=== PATIENT | female | born 1960 | race Caucasian/White ===

== ENCOUNTER → 2016-07-11 | Outpatient (CLI) | payer OTHER ==
--- NOTE | 2016-07-11 09:18 | DX ---
[facility], Right Knee Indication: Right medial knee pain. Fall on June 30, 2016. Comparison: July 08, 2013. Findings: There has been interval placement of a total knee arthroplasty. It is in good anatomic posi tioning without evidence of loosening. No significant joint effusion. Alignment of the knee is anatom ic. A fabella is noted in the posterior knee. Impressions 1. No evidence of fracture. 2. Right total knee arthroplasty in good anatomic positioning.
== END ==
LOC: BMCIMAGING 08:31
PROVIDERS: ATTEND Internal Medicine
DX: S89.91XA Unspecified injury of right lower leg, initial encounter (principal); W19.XXXA Unspecified fall, initial encounter

== ENCOUNTER → 2017-08-19 | Outpatient (CLI) | payer OTHER | LOC: BMCIMAGING 12:32 | PROVIDERS: ATTEND Internal Medicine | DX: Z12.31 Encounter for screening mammogram for malignant neoplasm of breast (principal); Z80.3 Family history of malignant neoplasm of breast ==

== ENCOUNTER → 2017-08-27 | Outpatient (CLI) | payer OTHER | LOC: BMCIMAGING 10:46 | PROVIDERS: ATTEND Internal Medicine | DX: R92.0 Mammographic microcalcification found on diagnostic imaging of breast (principal) ==

== ENCOUNTER → 2017-09-02 | Day surgery (SDC) | payer OTHER ==
[~2017-09-02] MED LIST: BUPIVACAINE 0.5% 10 ML SDV ONE; LIDOCAINE 1% 300 MG/30 ML SDV ONE
== END | disposition home or self-care (01) ==
LOC: FIMAGING 07:21
PROVIDERS: ATTEND Internal Medicine
PROC: BH00ZZZ Plain Radiography of Right Breast (ICD-10-PCS; principal; 2017-09-02)
PROC: 0HBU3ZX Excision of Left Breast, Percutaneous Approach, Diagnostic (ICD-10-PCS; principal; 2017-09-02)
DX: C50.912 Malignant neoplasm of unspecified site of left female breast (principal); R92.0 Mammographic microcalcification found on diagnostic imaging of breast; Z17.0 Estrogen receptor positive status [ER+]

== ENCOUNTER → 2017-09-22 | Outpatient (CLI) | payer OTHER ==
[~2017-09-22] MED LIST changes: -BUPIVACAINE 0.5% 10 ML SDV ONE; +GADOBUTROL 10 ML VIAL IVP ONE; -LIDOCAINE 1% 300 MG/30 ML SDV ONE
== END ==
LOC: FIMAGING 08:22
PROVIDERS: ATTEND Surgery
DX: C50.912 Malignant neoplasm of unspecified site of left female breast (principal)
CPT/HCPCS: 0159T; A9585; C8908

== ENCOUNTER 2017-12-17 20:48 | Emergency (ER) | payer OTHER ==
[2017-12-17] MEDS ORDERED: DIAZEPAM 5 MG/ML 1 ML SYR ONE (21:30)
[2017-12-17] MEDS ORDERED: NS 1,000 ML IV ONE (21:32)
[2017-12-17] MEDS ORDERED: DIAZEPAM 5 MG/ML 1 ML SYR IVP ONE (21:32)
--- NOTE | 2017-12-17 21:46 | EDPHY ---
H & P Stated Complaint: back spasms from chemo drug Time Seen by Provider: 12/17/17 21:20 HPI/ROS: CHIEF COMPLAINT: Low back pain HISTORY OF PRESENT ILLNESS: Patient is a 57-year-old female who is currently being treated for breast cancer with Neulasta which she began on Friday. Beginning this afternoon she is having lower back and gluteal cramping that occasionally radiates up to her neck. She called her oncologist who states that this is likely a side effect. She tried taking Ativan and Flexeril at home which she has been prescribed for muscle pain. She states that that did not control the pain and so she was told to come here to the ER. She is requesting diazepam. No vomiting. No diarrhea. No fever. No trauma. No focal weakness numbness or deficits. REVIEW OF SYSTEMS: Constitutional: denies: chills, fever, recent illness, recent injury EENTM: denies: blurred vision, double vision, nose congestion Respiratory: denies: cough, shortness of breath Cardiac: denies: chest pain, irregular heart rate, lightheadedness, palpitations Gastrointestinal/Abdominal: denies: abdominal pain, diarrhea, nausea, vomiting, blood streaked stools Genitourinary: denies: dysuria, frequency, hematuria, pain Musculoskeletal: See HPI Skin: denies: lesions, rash, jaundice, bruising Neurological: denies: headache, numbness, paresthesia, tingling, dizziness, weakness Hematologic/Lymphatic: denies: blood clots, easy bleeding, easy bruising Immunologic/allergic: denies: HIV/AIDS, transplant EXAM: GENERAL: Tearful, well-nourished and in no acute distress. HEAD: Atraumatic, normocephalic. EYES: Pupils equal round and reactive to light, extraocular movements intact, sclera anicteric, conjunctiva are normal. ENT: TMs normal, nares patent, oropharynx clear without exudates. Moist mucous membranes. NECK: Normal range of motion, supple without lymphadenopathy or JVD. LUNGS: Breath sounds clear to auscultation bilaterally and equal. No wheezes rales or rhonchi. HEART: Regular rate and rhythm without murmurs, rubs or gallops. ABDOMEN: Soft, nontender, normoactive bowel sounds. No guarding, no rebound. No masses appreciated. BACK: Low back pain at the top of her gluteus, lower lumbar region. No CVA tenderness, no spinal tenderness, step-offs or deformities EXTREMITIES: Normal range of motion, no pitting or edema. No clubbing or cyanosis. NEUROLOGICAL: Cranial nerves II through XII grossly intact. Normal speech, normal gait. 5/5 strength, normal movement in all extremities, normal sensation PSYCH: Normal mood, normal affect. SKIN: Warm, dry, normal turgor, no visible rashes or lesions. Source: Patient Exam Limitations: No limitations - Personal History Current Tetanus/Diphtheria Vaccine: Yes Current Tetanus Diphtheria and Acellular Pertussis (TDAP): Yes - Medical/Surgical History Hx Asthma: No Hx Chronic Respiratory Disease: No Hx Diabetes: No Hx Cardiac Disease: No Hx Renal Disease: No Hx Cirrhosis: No Hx Alcoholism: No Hx HIV/AIDS: No Hx Splenectomy or Spleen Trauma: No Other PMH: breast cancer, lumpectomy - Family History Significant Family History: No pertinent family hx - Social History Smoking Status: Never smoked Alcohol Use: Sober Drug Use: None Constitutional: Initial Vital Signs Temperature (C) 36.8 C 12/17/17 20:49 Heart Rate 66 12/17/17 20:49 Respiratory Rate 16 12/17/17 20:49 Blood Pressure 140/65 H 12/17/17 20:49 O2 Sat (%) 99 12/17/17 20:49 O2 Delivery Mode Room Air Allergies/Adverse Reactions: thimerosal Allergy (Verified 12/17/17 20:52) Unknown Home Medications: Medication Instructions Recorded Aspirin 81mg (*) DAILY 09/18/17 Cyclobenzaprine PRN 09/18/17 Herbals/Supplements -Info Only DAILY 09/18/17 LORAZEPAM PRN 09/18/17 Meloxicam PRN 09/18/17 Flexeril 10 MG (*) 12/17/17 Lidocaine [Lidoderm] 1 each TP DAILY PRN 5 Days 12/17/17 adh..patch Medical Decision Making ED Course/Re-evaluation: The 11:00 p.m. The patient was not doing the much better other than very feeling tired. We discussed options and decided to try lidocaine patch. The her lab work in urinalysis are reassuring. 11:30 p.m. the patient is feeling somewhat better. She would prefer to go home then receive further treatment or testing. We discussed indications for returning. Differential Diagnosis: Partial list of the Differential diagnosis considered include but were not limited to; muscle strain, urinary tract infection, kidney stone and although unlikely based on the history and physical exam, I also considered radiculopathy , infection, fracture, cauda equina. I discussed these differential diagnoses and the plan with the patient as well as the usual and expected course. The patient understands that the diagnosis is provisional and that in medicine we are not always correct and that further workup is often warranted. Usual and customary warnings were given. All of the patient's questions were answered. The patient was instructed to return to the emergency department should the symptoms at all worsen or return, otherwise to followup with the physician as we discussed. - Data Points Laboratory Results: Laboratory Results 12/17/17 21:30 12/17/17 21:30 Medications Given: Discontinued Medications Diazepam (Valium) 5 mg IVP EDNOW ONE Stop: 12/17/17 21:33 Last Admin: 12/17/17 21:34 Dose: 5 mg Sodium Chloride (Ns) 1,000 mls @ 0 mls/hr IV EDNOW ONE; Wide Open PRN Reason: Protocol Stop: 12/17/17 21:33 Last Admin: 12/17/17 21:33 Dose: 1,000 mls Miscellaneous Medication (Icy Hot Lidocaine/Menthol 4%/1% Patch) 1 patch TD EDNOW ONE Stop: 12/17/17 23:02 Last Admin: 12/17/17 23:23 Dose: 1 patch Departure - Departure Disposition: Home, Routine, Self-Care Clinical Impression: Muscle spasm of back Medication reaction Qualifiers: Encounter type: initial encounter Qualified Code(s): T50.905A - Adverse effect of unspecified drugs, medicaments and biological substances, initial encounter Condition: Fair Instructions: Muscle Spasm (ED) Referrals: NONE *PRIMARY CARE P,. [Primary Care Provider] - As per Instructions Prescriptions: Lidocaine [Lidoderm] 1 each TP DAILY PRN 5 Days adh..patch PRN Reason: Pain, Severe
[2017-12-17 21:56] LABS: PLATELET COUNT 227 10^3/uL (150-400)
[2017-12-17] MEDS ORDERED: LIDOCAINE 4%/MENTHOL 1% PATCH TD ONE (23:01)
[2017-12-17 23:31] VITALS: BP 102/86
[2017-12-18] MEDS ORDERED: PATCH REMOVAL 1 EA PATCH TD SCH (21:00)
== END 2017-12-17 23:45 | disposition home or self-care (01) ==
DX: M62.830 Muscle spasm of back (principal); T50.905A Adverse effect of unspecified drugs, medicaments and biological substances, initial encounter; E86.9 Volume depletion, unspecified; Z79.82 Long term (current) use of aspirin; Z85.3 Personal history of malignant neoplasm of breast
CPT/HCPCS: 96374; J3360

== ENCOUNTER 2018-03-17 16:43 | Emergency (ER) | payer OTHER ==
[2018-03-17] MEDS ORDERED: NS 1,000 ML IV ONE (16:53)
--- NOTE | 2018-03-17 17:05 | EDPHY ---
H & P Time Seen by Provider: 03/17/18 16:52 HPI/ROS: HPI Subjective fevers. Breast cancer. Chemotherapy. 57-year-old female by private vehicle. This patient has a history of breast cancer. She has been on a chemotherapeutic regiment since November. Her last dose was about a week ago. She received a dose every 3 weeks. She has had 5 doses total. She presents the emergency department stating that she is feeling hot. Complaining of subjective fevers as well as a metallic taste in her mouth. She reports she has had a metallic taste in her mouth for about 3 days. The fevers she noticed yesterday but have been worse today. She spoke to her oncologist through [facility]. She was told to come to the emergency department to be evaluated. Please see review of systems for further details. ROS: Constitutional: As above, no chills. No weakness. Eyes: No discharge. No changes in vision. ENT: No sore throat. No nasal congestion or rhinorrhea. Respiratory: No cough. No shortness of breath. Cardiac: No chest pain, no palpitations. Gastrointestinal: No abdominal pain, no vomiting, no diarrhea. Genitourinary: No hematuria. No dysuria or increased frequency with urination. Musculoskeletal: No back pain. No neck pain. No myalgias or arthralgias. Skin: No rashes. Neurological: No headache. No focal weakness or altered sensation. Past medical history: As above. Social history: Here by herself. Nonsmoker. No alcohol. Physical Exam: General Appearance: Alert, emotionally labile, intermittently tearful. This patient is responding to questions appropriately and in full sentences. This patient appears well-hydrated and well-nourished. Eyes: Pupils equal and round no pallor or injection. No lid edema, erythema or injection. ENT, Mouth: Mucous membranes are moist. The pharyngeal tissues are unremarkable. No edema or swelling. No asymmetry suggestive of abscess. No erythema or exudates. Respiratory: There are no retractions, lungs are clear to auscultation with good air movement bilaterally. Right upper chest wall Port-A-Cath. The site is clean dry and intact without evidence of infection. Cardiovascular: Regular rate and rhythm. No murmur. Gastrointestinal: Abdomen is soft and nontender, no masses, bowel sounds normal. No focal tenderness at McBurney's point. No Nolasco sign. Neurological: Motor sensory function is grossly intact. Cranial nerves are normal. Gait is normal. Skin: Warm and dry, no rashes. Musculoskeletal: Neck is supple and nontender. Extremities are symmetrical. All joints range without pain or impingement. Psychiatric: No agitation. No depression. Database: EKG: Imaging: Chest x-ray PA and lateral; the cardiac mediastinal silhouette is unremarkable. No evidence of infiltrate or pneumothorax. No acute cardiopulmonary disease process noted. Interpreted by me. Procedures: Emergency department course: Triage vital signs reviewed. She is moderately hypertensive. She is afebrile here. Vital signs are otherwise normal. An IV was placed. Blood work, urinalysis, chest x-ray and blood cultures to be obtained. Patient endorses workup. The patient states that she is currently asymptomatic other than the metallic taste in her mouth. 6:45 p.m., patient re-evaluated, resting comfortably at this time. Her vital signs have been reviewed and are normal. She has remained afebrile through her emergency department course. I discussed the results of her emergency department workup with her in detail. No source of infection. She is however leukopenic and neutropenic. I discussed starting her on an antibiotic. She does not want to do this at this time. She wants to be discharged to home. She wants copies of her laboratory work and will and relay this information to her oncologist this evening when she is home. I feel this is reasonable. Her oncologist can start her on an antibiotic if necessary. She obviously has very close follow-up available to her. Return to emergency department precautions were reviewed with her. All of her questions were answered. She was discharged from the emergency department in good condition. Differential Diagnosis: The differential diagnosis on this patient includes but is not limited to subjective fever. Pneumonia, urinary tract infection, bacteremia, serious bacterial infection unlikely. This represents a partial list of diagnoses considered. These considerations are based on history, physical exam, past history, reassessment and diagnostic testing. Smoking Status: Never smoked Constitutional: Initial Vital Signs Temperature (C) 36.9 C 03/17/18 16:51 Heart Rate 87 03/17/18 16:51 Respiratory Rate 16 03/17/18 16:51 Blood Pressure 162/89 H 03/17/18 16:51 O2 Sat (%) 98 03/17/18 16:51 O2 Delivery Mode Room Air Allergies/Adverse Reactions: thimerosal Allergy (Verified 03/17/18 16:50) Unknown Home Medications: Medication Instructions Recorded Aspirin 81mg (*) DAILY 09/18/17 Herbals/Supplements -Info Only DAILY 09/18/17 LORAZEPAM PRN 09/18/17 Amlodipine Besylate 03/17/18 Medical Decision Making - Data Points Laboratory Results: Laboratory Results 03/17/18 17:20 03/17/18 17:20 Microbiology Results: MICROBIOLOGY 03/17/18 17:20 Urine,Catheterized Urine Culture - Preliminary Three Benezett Types Medications Given: Discontinued Medications Sodium Chloride (Ns) 1,000 mls @ 0 mls/hr IV ONCE ONE; Wide Open PRN Reason: Protocol Stop: 03/17/18 16:54 Last Admin: 03/17/18 17:20 Dose: 1,000 mls Departure - Departure Disposition: Home, Routine, Self-Care Clinical Impression: History of fever, Leukopenia, Breast cancer Condition: Good Instructions: Fever in Adults (ED) Additional Instructions: Read and follow provided instructions. Follow-up with your oncologist this evening. Sent the results of your blood work. You can discuss whether antibiotic should be administered GERD with your oncologist. Return to the emergency department for fever, vomiting, cough worsening symptoms or other serious concerns. Referrals: Rachele Espinoza MD [Primary Care Provider] - As per Instructions
[2018-03-17 17:38] LABS: PLATELET COUNT 265 10^3/uL (150-400)
[2018-03-17 18:35] VITALS: BP 164/92
== END 2018-03-17 18:57 | disposition home or self-care (01) ==
DX: D72.819 Decreased white blood cell count, unspecified (principal); C50.919 Malignant neoplasm of unspecified site of unspecified female breast; E86.9 Volume depletion, unspecified